=== PATIENT | male | born 1955 | race Caucasian/White ===

== ENCOUNTER 2017-06-05 16:27 | Emergency (ER) | payer MEDICARE, OTHER ==
[~2017-06-05] VITALS: Ht 165.1 cm; Wt 65.9 kg
[2017-06-05] MEDS ORDERED: acetaminophen 325mg tablet PO ONE (17:05)
[2017-06-05 17:17] LABS: BASOPHILS % (AUTO) 0.4 % (0-1); EOSINOPHILS # (AUTO) 0.1 X10'3 (0-0.9); EOSINOPHILS % (AUTO) 1.4 % (0-6); HEMATOCRIT 39.8 % (42.0-52.0); HEMOGLOBIN 13.4 g/dl (14.0-17.9); LYMPHOCYTES # (AUTO) 0.9 X10'3 (1.1-4.8); LYMPHOCYTES % (AUTO) 14.2 % (21-51); MEAN CORPUSCULAR HEMOGLOBIN 28.6 PG (27.0-31.0); MEAN CORPUSCULAR HGB CONC 33.6 % (33.0-36.5); MEAN CORPUSCULAR VOLUME 85.3 FL (78-98); MEAN PLATELET VOLUME 7.7 FL (7.4-10.4); MONOCYTES # (AUTO) 0.6 X10'3 (0-0.9); NEUTROPHILS # (AUTO) 4.6 X10'3 (1.8-7.7); PLATELET COUNT 357 X10'3 (140-440); RED BLOOD COUNT 4.67 X10'6 (4.70-6.10); RED CELL DISTRIBUTION WIDTH 13.9 % (11.5-14.5); WHITE BLOOD COUNT 6.2 X10'3 (4.5-11.0)
[2017-06-05 17:32] LABS: PARTIAL THROMBOPLASTIN TIME 32 SECONDS (22-32); PROTHROMBIN TIME 10.4 SECONDS (9.0-12.0)
[2017-06-05 17:44] LABS: CLARITY,URINE CLEAR (Clear); COLOR,URINE YELLOW (Yellow); GLUCOSE, URINE NEGATIVE (Neg); KETONES,URINE NEGATIVE (Neg); LEUKOCYTE ESTERASE ,URINE NEGATIVE (Neg); NITRITES, URINE NEGATIVE (Neg); OCCULT BLOOD,URINE SMALL (Neg); PROTEIN,URINE 100 mg/dl (Neg); UROBILINOGEN,URINE >=8.0 E.U/dL (0.2-1.0)
[2017-06-05 17:45] LABS: UA COLLECTION TYPE URINAL
[2017-06-05 17:49] LABS: BACTERIA,URINE NONE SEEN /HPF (Neg); RBC,URINE 0-2 /HPF (0-2); SQUAMOUS EPITHELIAL CELL,UR FEW /LPF (FEW); WBC,URINE 0-4 /HPF (0-4)
[2017-06-05 17:54] LABS: ALANINE AMINOTRANSFERASE 22 U/L (12-78); ALBUMIN/GLOBULIN RATIO 0.7 (1.1-1.5); ALKALINE PHOSPHATASE 65 IU/L (46-116); ANION GAP 10 (8-16); ASPARTATE AMINO TRANSFERASE 23 U/L (10-37); BILIRUBIN,TOTAL 0.5 MG/DL (0.1-1.0); BLOOD UREA NITROGEN 11 MG/DL (7-18); BUN/CREATININE RATIO 11.3 (5.4-32.0); CALCIUM 8.8 MG/DL (8.5-10.1); CHLORIDE 97 MMOL/L (99-107); CREATININE 0.97 MG/DL (0.60-1.10); GLUCOSE 98 MG/DL (70-104); POTASSIUM 3.8 MMOL/L (3.5-5.1); SODIUM 134 MMOL/L (135-145); TOTAL CARBON DIOXIDE 27.2 MMOL/L (24-32); TOTAL PROTEIN 7.5 G/DL (6.4-8.2); eGFR 78 ML/MIN
[2017-06-05 17:59] LABS: MAGNESIUM 1.7 MG/DL (1.5-2.4); TROPONIN I < 0.04 NG/ML (0.0-0.05)
[2017-06-05] MEDS ORDERED: LEVO500T2 PO (18:28)
[2017-06-05] MEDS ORDERED: normal saline 1000ml 1,000 ML IV ONE (18:30)
[2017-06-05] MEDS ORDERED: levoFLOXACIN 750MG TABLET PO ONE (18:30)
[2017-06-05] MEDS ORDERED: ketorolac trometh. 30mg/ml inj. IV ONE (18:30)
[2017-06-05 19:46] VITALS: BP 135/60
== END 2017-06-05 19:47 | disposition home or self-care (01) ==
LOC: ER 16:28
DX: R91.8 Other nonspecific abnormal finding of lung field (principal); R50.9 Fever, unspecified; Z88.0 Allergy status to penicillin; Z79.899 Other long term (current) drug therapy
CPT/HCPCS: 36415; 71045; 80053; 81001; 83605; 83735; 84145; 84484; 85025; 85610; 85730; 87040; 93005; 96361; 96374; 99285; J1885; J7030

== ENCOUNTER 2017-06-17 16:26 | Inpatient (IN) | payer MEDICARE, OTHER ==
[~2017-06-17] VITALS: Ht 165.1 cm; Wt 64.0 kg
[2017-06-17] MEDS ORDERED: methylPREDNISolone sod succ 125mg/2ml vial IV ONE (16:40)
[2017-06-17] MEDS ORDERED: normal saline 1000ML IV soln IV ONE (16:40)
[2017-06-17] MEDS ORDERED: ipratropium/albuterol 3ml nebule NEB ONE (16:40)
[2017-06-17] MEDS ORDERED: levoFLOXACIN-Levaquin 750MG/D5 150 ML IV ONE (17:05)
[2017-06-17] MEDS ORDERED: vancomycin/NS 1 GM ADD-VANTAGE 250 ML IV ONE (17:05)
[2017-06-17 17:13] LABS: BASOPHILS % (AUTO) 0.2 % (0-1); EOSINOPHILS % (AUTO) 0 % (0-6); HEMATOCRIT 39.3 % (42.0-52.0); HEMOGLOBIN 13.2 g/dl (14.0-17.9); LYMPHOCYTES # (AUTO) 0.8 X10'3 (1.1-4.8); LYMPHOCYTES % (AUTO) 5.5 % (21-51); MEAN CORPUSCULAR HGB CONC 33.7 % (33.0-36.5); MEAN CORPUSCULAR VOLUME 83.2 FL (78-98); MEAN PLATELET VOLUME 8.6 FL (7.4-10.4); MONOCYTES # (AUTO) 0.6 X10'3 (0-0.9); MONOCYTES % (AUTO) 3.8 % (2-12); NEUTROPHILS # (AUTO) 13.2 X10'3 (1.8-7.7); NEUTROPHILS % (AUTO) 90.5 % (42-75); PLATELET COUNT 499 X10'3 (140-440); RED BLOOD COUNT 4.72 X10'6 (4.70-6.10); RED CELL DISTRIBUTION WIDTH 14.3 % (11.5-14.5); WHITE BLOOD COUNT 14.6 X10'3 (4.5-11.0)
[2017-06-17 17:28] LABS: ALANINE AMINOTRANSFERASE 22 U/L (12-78); ALBUMIN 2.4 G/DL (3.4-5.0); ALBUMIN/GLOBULIN RATIO 0.5 (1.1-1.5); ALKALINE PHOSPHATASE 74 IU/L (46-116); ANION GAP 11 (8-16); ASPARTATE AMINO TRANSFERASE 21 U/L (10-37); BILIRUBIN,TOTAL 1.6 MG/DL (0.1-1.0); BLOOD UREA NITROGEN 21 MG/DL (7-18); CALCIUM 8.5 MG/DL (8.5-10.1); CHLORIDE 97 MMOL/L (99-107); GLUCOSE 102 MG/DL (70-104); POTASSIUM 3.3 MMOL/L (3.5-5.1); SODIUM 133 MMOL/L (135-145); TOTAL CARBON DIOXIDE 24.7 MMOL/L (24-32); TOTAL PROTEIN 7.2 G/DL (6.4-8.2); eGFR 76 ML/MIN
[2017-06-17] MEDS ORDERED: magnesium 4gm in 100ml NS 100 ML IV PRN (18:10)
[2017-06-17] MEDS ORDERED: magnesium 2GM in 50ml NS 50 ML IV PRN (18:10)
[2017-06-17] MEDS ORDERED: magnesium Cl slow-release 64mg tablet PO PRN (18:10)
[2017-06-17] MEDS ORDERED: magnesium hydroxide 30ml (MOM) UD suspension PO PRN (18:10)
[2017-06-17] MEDS ORDERED: bisacodyl 10mg suppository rectal RC PRN (18:10)
[2017-06-17] MEDS ORDERED: potassium Cl 20 mEq SR tablet PO PRN (18:10)
[2017-06-17] MEDS ORDERED: acetaminophen 325mg tablet PO PRN (18:10)
[2017-06-17] MEDS ORDERED: potassium Cl 40MEQ/NS 500ml 500 ML IV PRN ×2 (18:10)
[2017-06-17] MEDS ORDERED: mag hydrox/Alum hydrox/simeth 30ml oral suspension PO PRN (18:10)
[2017-06-17] MEDS: diltiazem CD 120mg capsule (once-daily) PO SCH (19:00)
[2017-06-17] MEDS: docusate sod 100mg capsule PO SCH (20:00)
[2017-06-17] MEDS: potassium Cl 20 mEq SR tablet PO PRN (20:45)
[2017-06-17] MEDS: HYDROcodone/acetaminophen 5mg/325mg tablet PO PRN (20:50)
[2017-06-17] MEDS: ondansetron/PF 4mg/2ml inj IV PRN (20:50)
[2017-06-17] MEDS: ipratropium/albuterol 3ml nebule NEB SCH ×2 (21:00→23:43)
[2017-06-17 22:00] VITALS: BP 93/48
[2017-06-17 22:55] LABS: CLARITY,URINE CLEAR (Clear); GLUCOSE, URINE NEGATIVE (Neg); KETONES,URINE 15 mg/dl (Neg); LEUKOCYTE ESTERASE ,URINE NEGATIVE (Neg); NITRITES, URINE NEGATIVE (Neg); OCCULT BLOOD,URINE MODERATE (Neg); PROTEIN,URINE 100 mg/dl (Neg)
[2017-06-17 22:56] LABS: COLOR,URINE DARK YELLOW (Yellow); UA COLLECTION TYPE CLN CATCH MIDSTREAM
[2017-06-17 23:00] VITALS: BP 90/51
[2017-06-17 23:04] LABS: WBC,URINE NONE SEEN /HPF (0-4)
[2017-06-17 23:05] LABS: BACTERIA,URINE 2+ /HPF (Neg); MUCUS STRANDS NONE SEEN /LPF (Neg); SQUAMOUS EPITHELIAL CELL,UR FEW /LPF (FEW)
[2017-06-17] MEDS: potassium Cl 20mEq in NS 1,000 ML IV SCH (23:09)
[2017-06-17] MEDS: methylPREDNISolone sod succ 125mg/2ml vial IV SCH (23:52)
[2017-06-18] MEDS: potassium Cl 20 mEq SR tablet PO PRN ×2 (03:58→10:10)
[2017-06-18] MEDS: potassium Cl 20mEq in NS 1,000 ML IV SCH ×2 (04:09→10:35)
[2017-06-18] MEDS: ipratropium/albuterol 3ml nebule NEB SCH ×5 (04:28→21:03)
[2017-06-18 05:43] LABS: BASOPHILS % (AUTO) 0 % (0-1); EOSINOPHILS # (AUTO) 0.1 X10'3 (0-0.9); EOSINOPHILS % (AUTO) 1.6 % (0-6); HEMATOCRIT 38.4 % (42.0-52.0); HEMOGLOBIN 12.8 g/dl (14.0-17.9); LYMPHOCYTES # (AUTO) 0.7 X10'3 (1.1-4.8); LYMPHOCYTES % (AUTO) 8.7 % (21-51); MEAN CORPUSCULAR HEMOGLOBIN 28.3 PG (27.0-31.0); MEAN CORPUSCULAR HGB CONC 33.2 % (33.0-36.5); MEAN PLATELET VOLUME 9.6 FL (7.4-10.4); MONOCYTES # (AUTO) 0.1 X10'3 (0-0.9); MONOCYTES % (AUTO) 1.1 % (2-12); NEUTROPHILS # (AUTO) 7.4 X10'3 (1.8-7.7); NEUTROPHILS % (AUTO) 88.6 % (42-75); PLATELET COUNT 398 X10'3 (140-440); RED BLOOD COUNT 4.52 X10'6 (4.70-6.10); RED CELL DISTRIBUTION WIDTH 14.3 % (11.5-14.5); WHITE BLOOD COUNT 8.3 X10'3 (4.5-11.0)
[2017-06-18 05:57] LABS: ALANINE AMINOTRANSFERASE 17 U/L (12-78); ALBUMIN 1.8 G/DL (3.4-5.0); ALBUMIN/GLOBULIN RATIO 0.4 (1.1-1.5); ALKALINE PHOSPHATASE 60 IU/L (46-116); ANION GAP 9 (8-16); ASPARTATE AMINO TRANSFERASE 15 U/L (10-37); BLOOD UREA NITROGEN 19 MG/DL (7-18); BUN/CREATININE RATIO 27.1 (5.4-32.0); CALCIUM 7.9 MG/DL (8.5-10.1); CHLORIDE 105 MMOL/L (99-107); GLUCOSE 136 MG/DL (70-104); MAGNESIUM 2.1 MG/DL (1.5-2.4); POTASSIUM 4.1 MMOL/L (3.5-5.1); SODIUM 137 MMOL/L (135-145); TOTAL PROTEIN 6.1 G/DL (6.4-8.2); eGFR > 90 ML/MIN
[2017-06-18 07:30] VITALS: BP 101/58
[2017-06-18] MEDS: docusate sod 100mg capsule PO SCH ×2 (07:43→20:47)
[2017-06-18] MEDS: levoFLOXACIN-Levaquin 750MG/D5 150 ML IV SCH (07:43)
[2017-06-18] MEDS: enoxaparin 40mg/0.4ml syringe SUBCUT SCH (07:44)
[2017-06-18] MEDS: diltiazem CD 120mg capsule (once-daily) PO SCH (08:00)
[2017-06-18] MEDS: K and/or MAG REPLACEMENT MC SCH (08:00)
[2017-06-18] MEDS: LACTOSE-FREE FOOD 237ML (BOOST) PO SCH ×3 (08:23→18:00)
[2017-06-18] MEDS: methylPREDNISolone sod succ 125mg/2ml vial IV SCH ×3 (08:24→20:47)
[2017-06-18] MEDS ORDERED: NO HOME MEDS (09:46)
[2017-06-18] MEDS: oseltamivir phos 75mg capsule PO SCH ×2 (10:10→20:47)
[2017-06-18 11:00] VITALS: BP 104/62
[2017-06-18] MEDS: lactobacillus rhamnosus 10,000 MMU CELLS/CAPSULE PO SCH (17:44)
[2017-06-18 20:00] VITALS: BP 111/66
[2017-06-18] MEDS: ondansetron/PF 4mg/2ml inj IV PRN (21:32)
[2017-06-18 23:00] VITALS: BP 114/63
[2017-06-19] MEDS: ipratropium/albuterol 3ml nebule NEB SCH ×7 (00:17→23:32)
[2017-06-19] MEDS: potassium Cl 20mEq in NS 1,000 ML IV SCH ×3 (01:27→20:00)
[2017-06-19 05:58] LABS: ALANINE AMINOTRANSFERASE 17 U/L (12-78); ALBUMIN 1.9 G/DL (3.4-5.0); ALBUMIN/GLOBULIN RATIO 0.4 (1.1-1.5); ALKALINE PHOSPHATASE 65 IU/L (46-116); ANION GAP 9 (8-16); ASPARTATE AMINO TRANSFERASE 19 U/L (10-37); BILIRUBIN,TOTAL 0.7 MG/DL (0.1-1.0); BLOOD UREA NITROGEN 18 MG/DL (7-18); CALCIUM 8.9 MG/DL (8.5-10.1); CHLORIDE 111 MMOL/L (99-107); GLUCOSE 165 MG/DL (70-104); MAGNESIUM 2.1 MG/DL (1.5-2.4); POTASSIUM 4.8 MMOL/L (3.5-5.1); SODIUM 143 MMOL/L (135-145); TOTAL CARBON DIOXIDE 22.6 MMOL/L (24-32); TOTAL PROTEIN 6.4 G/DL (6.4-8.2); eGFR > 90 ML/MIN
[2017-06-19] MEDS: K and/or MAG REPLACEMENT MC SCH (06:09)
[2017-06-19] MEDS: diltiazem CD 120mg capsule (once-daily) PO SCH (06:37)
[2017-06-19] MEDS: docusate sod 100mg capsule PO SCH ×2 (06:44→20:00)
[2017-06-19] MEDS: oseltamivir phos 75mg capsule PO SCH ×2 (06:44→20:00)
[2017-06-19] MEDS: lactobacillus rhamnosus 10,000 MMU CELLS/CAPSULE PO SCH ×3 (06:44→20:00)
[2017-06-19] MEDS: methylPREDNISolone sod succ 125mg/2ml vial IV SCH (06:44)
[2017-06-19] MEDS: enoxaparin 40mg/0.4ml syringe SUBCUT SCH (06:45)
[2017-06-19] MEDS: levoFLOXACIN-Levaquin 750MG/D5 150 ML IV SCH (06:45)
[2017-06-19 07:00] VITALS: BP 108/64
[2017-06-19] MEDS: LACTOSE-FREE FOOD 237ML (BOOST) PO SCH ×3 (07:51→18:09)
[2017-06-19 11:00] VITALS: BP 121/70
[2017-06-19 20:00] VITALS: BP 122/78
[2017-06-19 23:00] VITALS: BP 110/75
[2017-06-20] MEDS: ipratropium/albuterol 3ml nebule NEB SCH ×6 (03:00→23:00)
[2017-06-20] MEDS: HYDROcodone/acetaminophen 5mg/325mg tablet PO PRN (04:37)
[2017-06-20 06:25] LABS: ALANINE AMINOTRANSFERASE 18 U/L (12-78); ALBUMIN 1.7 G/DL (3.4-5.0); ALBUMIN/GLOBULIN RATIO 0.5 (1.1-1.5); ALKALINE PHOSPHATASE 55 IU/L (46-116); ANION GAP 7 (8-16); ASPARTATE AMINO TRANSFERASE 12 U/L (10-37); BILIRUBIN,TOTAL 0.6 MG/DL (0.1-1.0); BLOOD UREA NITROGEN 18 MG/DL (7-18); BUN/CREATININE RATIO 25.7 (5.4-32.0); CHLORIDE 110 MMOL/L (99-107); GLUCOSE 79 MG/DL (70-104); MAGNESIUM 1.9 MG/DL (1.5-2.4); POTASSIUM 4.1 MMOL/L (3.5-5.1); SODIUM 143 MMOL/L (135-145); TOTAL PROTEIN 5.2 G/DL (6.4-8.2); eGFR > 90 ML/MIN
[2017-06-20] MEDS: K and/or MAG REPLACEMENT MC SCH (06:35)
[2017-06-20 07:00] VITALS: BP 121/72
[2017-06-20] MEDS ORDERED: pantoprazole 40mg Tablet.DR PO SCH (07:30)
[2017-06-20] MEDS: docusate sod 100mg capsule PO SCH ×2 (07:53→20:00)
[2017-06-20] MEDS: lactobacillus rhamnosus 10,000 MMU CELLS/CAPSULE PO SCH ×2 (07:53→20:00)
[2017-06-20] MEDS: enoxaparin 40mg/0.4ml syringe SUBCUT SCH (07:54)
[2017-06-20] MEDS: potassium Cl 20mEq in NS 1,000 ML IV SCH (07:55)
[2017-06-20] MEDS: oseltamivir phos 75mg capsule PO SCH ×2 (07:55→20:00)
[2017-06-20] MEDS: diltiazem CD 120mg capsule (once-daily) PO SCH (07:56)
[2017-06-20] MEDS: LACTOSE-FREE FOOD 237ML (BOOST) PO SCH ×3 (07:56→18:11)
[2017-06-20] MEDS ORDERED: predniSONE 20 mg tablet PO SCH (08:30)
[2017-06-20 11:00] VITALS: BP 123/77
[2017-06-20] MEDS ORDERED: levoFLOXACIN 750MG TABLET PO SCH (11:00)
[2017-06-20] MEDS ORDERED: FAMO-128 PO (13:44)
[2017-06-20] MEDS ORDERED: CARCD120C PO (13:44)
[2017-06-20] MEDS ORDERED: PRED10TA23 PO (13:44)
[2017-06-20] MEDS ORDERED: TAM75C PO (13:44)
[2017-06-20] MEDS ORDERED: CIPR-230 PO (13:44)
[2017-06-20] MEDS ORDERED: PRE5T PO (14:40)
[2017-06-20] MEDS ORDERED: LORazepam 0.5 MG tablet PO PRN (16:55)
== END 2017-06-21 01:30 | disposition left against medical advice (07) | DRG 871 ==
LOC: ER 16:27 → ED HOLD 17:56 → EDBEDREQ 20:03 → SUR 3N 21:15
PROVIDERS: ADMIT Internal Medicine; ATTEND Internal Medicine
DX: A41.9 Sepsis, unspecified organism (principal); J09.X1 Influenza due to identified novel influenza A virus with pneumonia; J96.01 Acute respiratory failure with hypoxia; E44.0 Moderate protein-calorie malnutrition; J18.8 Other pneumonia, unspecified organism; E87.1 Hypo-osmolality and hyponatremia; J44.0 Chronic obstructive pulmonary disease with (acute) lower respiratory infection; J44.1 Chronic obstructive pulmonary disease with (acute) exacerbation; E86.0 Dehydration; E87.6 Hypokalemia; I49.3 Ventricular premature depolarization; F12.90 Cannabis use, unspecified, uncomplicated; Z59.0 Homelessness; Z88.0 Allergy status to penicillin; Z79.899 Other long term (current) drug therapy; Z87.891 Personal history of nicotine dependence; Z68.23 Body mass index [BMI] 23.0-23.9, adult
CPT/HCPCS: 36415; 71045; 80053; 81001; 83605; 83735; 84484; 85025; 87040; 87070; 87502; 87503; 93005; 94640; 94760; 97116; 97162; 97530; 99285; A6258; J1650; J1956; J2405; J2930; J3370; J7030; J7512